=== PATIENT | male | born 1970 | race Caucasian/White ===

== ENCOUNTER → 2019-11-02 08:59 | Outpatient (BNVA) | payer MEDICAID, SELFPAY | PROVIDERS: Family Provider Family Medicine; PCP Family Medicine; Visit Provider Psychiatry & Neurology Psychiatry | DX: F43.12 Post-traumatic stress disorder, chronic (principal); F17.200 Nicotine dependence, unspecified, uncomplicated; F31.74 Bipolar disorder, in full remission, most recent episode manic; Z79.899 Other long term (current) drug therapy | CPT/HCPCS: 80048; 80061; 80178; 83036; 84443; 99213 ==

== ENCOUNTER → 2019-12-23 09:02 | Outpatient (BNVA) | payer MEDICAID, SELFPAY | PROVIDERS: Family Provider Family Medicine; PCP Family Medicine; Visit Provider Anesthesiology | DX: G89.4 Chronic pain syndrome (principal); M47.16 Other spondylosis with myelopathy, lumbar region; M47.27 Other spondylosis with radiculopathy, lumbosacral region; M47.24 Other spondylosis with radiculopathy, thoracic region; F17.210 Nicotine dependence, cigarettes, uncomplicated; Z79.891 Long term (current) use of opiate analgesic | CPT/HCPCS: 99214 ==

== ENCOUNTER → 2019-12-26 09:01 | Outpatient (BNVA) | payer MEDICAID, SELFPAY | PROVIDERS: Family Provider Family Medicine; PCP Family Medicine; Visit Provider Psychiatry & Neurology Psychiatry | DX: F43.12 Post-traumatic stress disorder, chronic (principal); F31.74 Bipolar disorder, in full remission, most recent episode manic; F17.200 Nicotine dependence, unspecified, uncomplicated | CPT/HCPCS: 99213 ==

== ENCOUNTER → 2020-03-26 07:30 | Outpatient (BNVA) | payer MEDICAID, SELFPAY | PROVIDERS: Family Provider Family Medicine; PCP Family Medicine; Visit Provider Psychiatry & Neurology Psychiatry | DX: F31.74 Bipolar disorder, in full remission, most recent episode manic (principal); F43.12 Post-traumatic stress disorder, chronic; F17.200 Nicotine dependence, unspecified, uncomplicated | CPT/HCPCS: 99213 ==

== ENCOUNTER 2020-05-02 07:57 | Outpatient (CLI) | payer MEDICAID, SELFPAY ==
--- NOTE | 2020-05-02 | XR_ITS ---
WS: [id number] LUMBAR SPINE FLEXION AND EXTENSION TECHNIQUE: 3 views of the lumbar spine: Lateral neutral, flexion, and extension views. CLINICAL INFORMATION: LOW BACK PAIN COMPARISON: None. FINDINGS: Normal lumbar alignment on the neutral view. No instability on the flexion and extension views. XR/XR lumbar spine f/e only [id number] IMPRESSION: No instability on flexion-extension
--- NOTE | 2020-05-02 | MR_ITS ---
WS: [id number] MRI LUMBAR SPINE NONCONTRAST TECHNIQUE: Sagittal T1, T2 and STIR imaging. Axial T1 and T2 imaging. CLINICAL INFORMATION: LOW BACK PAIN COMPARISON: None. FINDINGS: Mild lumbar curve. No acute compression. No high-grade central canal stenosis. Tarlov cyst in the sac rum. L1-L2: Normal. L2-L3: Normal. L3-L4: No significant disc bulging. Mild facet arthropathy. Spinal canal and foramen are patent. L4-L5: Mild annular bulging with slight effacement of the ventral thecal sac. Narrowing of the right subarticular recess. Slight impingement traversing right L5 nerve root. Mild right and no significant left foraminal narrowing. Moderate facet arthropathy. L5-S1: Mild annular bulging with tiny central protrusion. Slight contact of the traversing S1 nerve r oots. Foramen are patent. Moderate facet arthropathy. Visualized pelvic bony structures: Normal. Paravertebral soft tissues: Normal. MR/MR lumbar spine wo con* [id number] IMPRESSION: 1. Mild lumbar curve. No acute compression. No high-grade central canal stenos is. 2. Mild annular bulging L4-5 with slight narrowing of the right subarticular r ecess and encroachment on the traversing right L5 nerve root. Mild right forami nal narrowing. 3. Shallow central protrusion L5-S1 with slight contact of the traversing S1 n erve roots. 4. Moderate facet arthropathy L4-L5 and L5-S1.
== END 2020-05-02 07:58 | disposition home or self-care (01) ==
LOC: RADWPI 07:59
PROVIDERS: Family Provider Family Medicine; PCP Family Medicine; Visit Provider Nurse Practitioner
DX: M51.27 Other intervertebral disc displacement, lumbosacral region (principal); M47.817 Spondylosis without myelopathy or radiculopathy, lumbosacral region
CPT/HCPCS: 72120; 72148

== ENCOUNTER 2020-06-04 20:00 | Outpatient (CLI) | payer MEDICAID, SELFPAY | END 2020-06-04 20:01 | disposition home or self-care (01) | LOC: SLEEP 06-05 08:57 | PROVIDERS: Family Provider Family Medicine; PCP Family Medicine; Visit Provider Anesthesiology Pain Medicine | DX: G47.10 Hypersomnia, unspecified (principal) | CPT/HCPCS: 95810 ==

== ENCOUNTER → 2020-06-20 07:20 | Outpatient (BNVA) | payer MEDICAID, SELFPAY | PROVIDERS: Family Provider Family Medicine; PCP Family Medicine; Visit Provider Psychiatry & Neurology Psychiatry | DX: F31.74 Bipolar disorder, in full remission, most recent episode manic (principal); F43.12 Post-traumatic stress disorder, chronic | CPT/HCPCS: 99213 ==

== ENCOUNTER → 2020-09-03 07:34 | Outpatient (BNVA) | payer MEDICAID, SELFPAY | PROVIDERS: Family Provider Family Medicine; PCP Family Medicine; Visit Provider Psychiatry & Neurology Psychiatry | DX: F31.74 Bipolar disorder, in full remission, most recent episode manic (principal); F43.12 Post-traumatic stress disorder, chronic; F17.200 Nicotine dependence, unspecified, uncomplicated; Z79.899 Other long term (current) drug therapy | CPT/HCPCS: 99214 ==

== ENCOUNTER → 2020-09-05 13:39 | Outpatient (BNVA) | payer MEDICAID, SELFPAY | PROVIDERS: Family Provider Family Medicine; PCP Family Medicine; Visit Provider Family Medicine | DX: R05 Cough (principal) | CPT/HCPCS: 71046 ==

== ENCOUNTER → 2020-09-06 09:36 | Outpatient (BNVA) | payer MEDICAID, SELFPAY | PROVIDERS: Family Provider Family Medicine; PCP Family Medicine; Visit Provider Family Medicine | DX: Z11.59 Encounter for screening for other viral diseases (principal); J18.9 Pneumonia, unspecified organism; R05 Cough | CPT/HCPCS: 87635 ==

== ENCOUNTER → 2020-11-26 07:49 | Outpatient (BNVA) | payer MEDICAID, SELFPAY | PROVIDERS: Family Provider Family Medicine; PCP Family Medicine; Visit Provider Psychiatry & Neurology Psychiatry | DX: F31.74 Bipolar disorder, in full remission, most recent episode manic (principal); F43.12 Post-traumatic stress disorder, chronic; F17.200 Nicotine dependence, unspecified, uncomplicated; Z59.6 Low income; Z79.899 Other long term (current) drug therapy | CPT/HCPCS: 99214 ==

== ENCOUNTER → 2021-01-21 08:05 | Outpatient (BNVA) | payer MEDICAID, SELFPAY | PROVIDERS: Family Provider Family Medicine; PCP Family Medicine; Visit Provider Psychiatry & Neurology Psychiatry | DX: F43.12 Post-traumatic stress disorder, chronic (principal); F31.74 Bipolar disorder, in full remission, most recent episode manic; Z59.6 Low income; F17.200 Nicotine dependence, unspecified, uncomplicated | CPT/HCPCS: 99214 ==

== ENCOUNTER → 2021-03-18 08:26 | Outpatient (BNVA) | payer MEDICAID, SELFPAY | PROVIDERS: Family Provider Family Medicine; PCP Family Medicine; Visit Provider Psychiatry & Neurology Psychiatry | DX: F31.74 Bipolar disorder, in full remission, most recent episode manic (principal); F43.12 Post-traumatic stress disorder, chronic; F17.200 Nicotine dependence, unspecified, uncomplicated; Z59.6 Low income | CPT/HCPCS: 99214 ==

== ENCOUNTER → 2021-06-13 07:07 | Outpatient (BNVA) | payer MEDICAID, SELFPAY | PROVIDERS: Family Provider Family Medicine; PCP Family Medicine; Visit Provider Psychiatry & Neurology Psychiatry | DX: F31.74 Bipolar disorder, in full remission, most recent episode manic (principal); F43.12 Post-traumatic stress disorder, chronic; F17.200 Nicotine dependence, unspecified, uncomplicated; Z59.6 Low income | CPT/HCPCS: 99214 ==

== ENCOUNTER → 2021-09-26 08:23 | Outpatient (BNVA) | payer MEDICAID, SELFPAY | PROVIDERS: Family Provider Family Medicine; PCP Family Medicine; Visit Provider Psychiatry & Neurology Psychiatry | DX: F31.74 Bipolar disorder, in full remission, most recent episode manic (principal); F43.12 Post-traumatic stress disorder, chronic; F17.200 Nicotine dependence, unspecified, uncomplicated; Z59.6 Low income | CPT/HCPCS: 99214 ==

== ENCOUNTER → 2022-03-05 09:04 | Outpatient (BNVA) | payer MEDICAID, SELFPAY | PROVIDERS: Family Provider Family Medicine; PCP Family Medicine; Visit Provider Psychiatry & Neurology Psychiatry | DX: F31.74 Bipolar disorder, in full remission, most recent episode manic (principal); F43.12 Post-traumatic stress disorder, chronic; G47.10 Hypersomnia, unspecified; Z79.899 Other long term (current) drug therapy; F17.200 Nicotine dependence, unspecified, uncomplicated | CPT/HCPCS: 99214 ==